=== PATIENT | male | born 1955 | race Caucasian/White ===

== ENCOUNTER 2018-08-26 12:40 | Day surgery (SDC) | payer BC ==
[~2018-08-26] VITALS: Ht 177.8 cm; Wt 98.3 kg
[~2018-08-26 12:40] MED LIST: ATORVASTATIN CA40 MG PO; EPIPEN 2-P0.3 MG/0.3 IM; LANS15EC PO; LEVO-T100 MCG PO; TAMS.4ER PO; Zantac150 MG PO
--- NOTE | 2018-08-26 14:02 | NUR ---
08/26/18 1402 Teena Cuellar FIRST IV ATTEMPT IN RIGHT HAND WAS UNSUCCESSFUL BY ORS.CML. SECOND ATTEMPT IN RIGHT WRIST WAS SUCCESSFUL AND TOLERATED WELL, BY ORS.RCL.
== END 2018-08-26 16:30 | disposition home or self-care (01) ==
LOC: ORSCSDS 12:40
PROVIDERS: Student in an Organized Health Care Education/Training Program
PROC: 0DB58ZX Excision of Esophagus, Via Natural or Artificial Opening Endoscopic, Diagnostic (ICD-10-PCS; principal; 2018-08-26 14:00)
PROC: 0DBL8ZX Excision of Transverse Colon, Via Natural or Artificial Opening Endoscopic, Diagnostic (ICD-10-PCS; principal; 2018-08-26 14:00)
PROC: 0DB68ZX Excision of Stomach, Via Natural or Artificial Opening Endoscopic, Diagnostic (ICD-10-PCS; principal; 2018-08-26 14:00)
DX: K92.1 Melena (principal); K21.0 Gastro-esophageal reflux disease with esophagitis; K31.7 Polyp of stomach and duodenum; D12.3 Benign neoplasm of transverse colon; K44.9 Diaphragmatic hernia without obstruction or gangrene; K29.70 Gastritis, unspecified, without bleeding; K57.30 Diverticulosis of large intestine without perforation or abscess without bleeding; E03.9 Hypothyroidism, unspecified; D64.9 Anemia, unspecified; I10 Essential (primary) hypertension; Z68.33 Body mass index [BMI] 33.0-33.9, adult; E66.9 Obesity, unspecified; Z79.899 Other long term (current) drug therapy
CPT/HCPCS: 88305; 88342; J2704; J7120